=== PATIENT | male | born 1970 | race Caucasian/White ===

== ENCOUNTER 2016-09-15 09:26 | Outpatient (RCR) | payer BC ==
[~2016-09-15 09:26] MED LIST: COZAAR50 MG ORAL; HYDROCHLOROTHIA25 MG ORAL; MELOXICAM15 MG PO; PROVENTIL HFA6.7 G1 IH
== END 2016-10-11 | disposition home or self-care (01) ==
LOC: PTY 09:26
DX: M23.231 Derangement of other medial meniscus due to old tear or injury, right knee (principal); I10 Essential (primary) hypertension